=== PATIENT | male | born 1990 | race Caucasian/White ===

== ENCOUNTER 2020-07-30 09:12 | Day surgery (SDC) | payer MEDICAID ==
[2020-07-22 12:39] LABS: BASOPHILS % (AUTO) 0.4 % (0-1); EOSINOPHILS # (AUTO) 0.1 X10'3 (0-0.9); EOSINOPHILS % (AUTO) 1.6 % (0-6); LYMPHOCYTES # (AUTO) 1.8 X10'3 (1.1-4.8); LYMPHOCYTES % (AUTO) 36.8 % (21-51); MEAN CORPUSCULAR HEMOGLOBIN 31.4 PG (27.0-31.0); MEAN CORPUSCULAR HGB CONC 33.8 g/dL (33.0-36.5); MEAN CORPUSCULAR VOLUME 92.8 FL (78-98); MEAN PLATELET VOLUME 8.3 FL (7.4-10.4); MONOCYTES # (AUTO) 0.5 X10'3 (0-0.9); MONOCYTES % (AUTO) 9.6 % (2-12); NEUTROPHILS # (AUTO) 2.5 X10'3 (1.8-7.7); NEUTROPHILS % (AUTO) 51.6 % (42-75); PRE OP HEMATOCRIT 44.1 % (42.0-52.0); PRE OP HEMOGLOBIN 14.9 g/dL (14.0-17.9); PRE OP PLATELET COUNT 242 X10'3 (140-440); RED BLOOD COUNT 4.75 X10'6 (4.70-6.10); RED CELL DISTRIBUTION WIDTH 13.5 % (11.5-14.5)
[2020-07-22 12:55] LABS: ALBUMIN 4.2 G/DL (3.4-5.0); ALBUMIN/GLOBULIN RATIO 1.2 (1.1-1.5); ALKALINE PHOSPHATASE 72 IU/L (46-116); BLOOD UREA NITROGEN 13 MG/DL (7-18); BUN/CREATININE RATIO 11.1 (5.4-32.0); CALCIUM 9.3 MG/DL (8.5-10.1); CHLORIDE 102 MMOL/L (99-107); CREATININE 1.17 MG/DL (0.60-1.10); PRE OP ANION GAP 9 (8-16); PRE OP AST 52 U/L (10-37); PRE OP BILIRUB, TOTAL 1.1 MG/DL (0.0-1.0); PRE OP GLUCOSE 119 MG/DL (70-104); PRE OP POTASSIUM 3.8 MMOL/L (3.4-5.1); PRE OP SODIUM 140 MMOL/L (135-145); TOTAL CARBON DIOXIDE 29.1 MMOL/L (24-32); TOTAL PROTEIN 7.8 G/DL (6.4-8.2); eGFR 73 ML/MIN
[2020-07-22 12:59] LABS: PRE OP ALT 139 U/L (30-65)
[2020-07-30] VITALS (8 sets, daily range): BP systolic 103–130; BP diastolic 55–79
[~2020-07-30] VITALS: Ht 182.9 cm; Wt 104.0 kg
[~2020-07-30 09:12] MED LIST: NO HOME MEDS; ceFAZolin 2gm in dextrose, iso 50 ML IV ONE; famotidine 20mg tablet PO ONE; ringers solution, lacted 1,000 ML IV SCH; vancomycin 1,500 MG in NS 300ml IV soln IV ONE
[2020-07-30] MEDS ORDERED: BUPIVAcaine/PF 2.5mg/ml (0.25%) 10ml vial ONE (11:26)
[2020-07-30] MEDS ORDERED: sevoflurane 250ml liquid IH ONE (11:46)
[2020-07-30] MEDS ORDERED: fentaNYL/PF 50MCG/1 ML 2ML syringe ONE ×2 (11:49→13:25)
[2020-07-30] MEDS ORDERED: midazolam 2 mg/2 ml injection ONE ×2 (11:50)
[2020-07-30] MEDS ORDERED: ondansetron/PF 4mg/2ml inj IV PRN (13:10)
[2020-07-30] MEDS ORDERED: proCHLORperazine 10 MG/2 ml inj IV PRN (13:10)
[2020-07-30] MEDS ORDERED: meperidine/PF 25mg/ml syringe IV PRN ×3 (13:10)
[2020-07-30] MEDS ORDERED: morphine 4 MG/ML inj SYRINge IV PRN (13:10)
[2020-07-30] MEDS ORDERED: morphine 2 MG/ML inj. syringe IV PRN (13:10)
[2020-07-30] MEDS ORDERED: ringers solution, lacted 1,000 ML IV SCH (13:10)
[2020-07-30] MEDS ORDERED: dexamethasone sod phosphate 4mg/ml inj. ONE (13:43)
[2020-07-30] MEDS ORDERED: LIDOcaine 1%/PF 5ML 10 MG/ML VIAL ONE (13:43)
[2020-07-30] MEDS ORDERED: ROPIVAcaine 0.5% (5mg/ml) 30ml vial ONE (13:43)
[2020-07-30] MEDS ORDERED: propofol inj 20 ML IV ONE (13:43)
[2020-07-30] MEDS ORDERED: ondansetron/PF 4mg/2ml inj ONE (13:43)
[2020-07-30] MEDS ORDERED: meperidine/PF 25mg/ml syringe ONE (13:46)
--- NOTE | 2020-07-30 13:54 | NUR ---
DOING VERY WELL. NO PAIN, HAND MOVES. DSG CDI.
--- NOTE | 2020-07-30 14:04 | NUR ---
Received from OR via [facility], accompanied by Anesthesiologist DR. CORREA and report given by Anesthesiolgist. SLING INTACT, DRESSING RT SHOULDER CDI. VSS, IV PATENT. DENIES PAIN.
--- NOTE | 2020-07-30 15:14 | NUR ---
TO HOME AFTER IV OUT. DC INSTRUCTIONS GONE OVER WITH AND PT. NO PAIN, HAND IS STILL NUMB FROM THE BLOCK. DSG CDI. NO COMPLAINTS AT ALL.
== END 2020-07-30 15:14 | disposition home or self-care (01) ==
LOC: PAS 09:12
PROVIDERS: ATTEND Orthopaedic Surgery
DX: S43.431A Superior glenoid labrum lesion of right shoulder, initial encounter (principal); M19.011 Primary osteoarthritis, right shoulder; M94.211 Chondromalacia, right shoulder; M65.811 Other synovitis and tenosynovitis, right shoulder; M75.41 Impingement syndrome of right shoulder; I10 Essential (primary) hypertension; E66.8 Other obesity; Z68.30 Body mass index [BMI] 30.0-30.9, adult; M19.012 Primary osteoarthritis, left shoulder; M17.12 Unilateral primary osteoarthritis, left knee; Z20.828 Contact with and (suspected) exposure to other viral communicable diseases; Z79.899 Other long term (current) drug therapy; Z72.89 Other problems related to lifestyle; G89.18 Other acute postprocedural pain; Z83.3 Family history of diabetes mellitus; Z82.49 Family history of ischemic heart disease and other diseases of the circulatory system; X58.XXXA Exposure to other specified factors, initial encounter; Y93.89 Activity, other specified; Y92.89 Other specified places as the place of occurrence of the external cause; Y99.8 Other external cause status
CPT/HCPCS: 29807; 29824; 29826; 36415; 64415; 76942; 80053; 82948; 85025; 87635; C1713; J1100; J2175; J2250; J2405; J2704; J3010; J3370; J3490; J7040; A4215; A4565; A4618; A6250; A6449; A7000; J2795; J7120